=== PATIENT | female | born 1990 | race Caucasian/White ===

== ENCOUNTER 2018-09-15 01:17 | Emergency (ER) | payer SELFPAY, MEDICAID ==
[2018-09-15 01:46] LABS: URINE BLOOD (Dip) POC 1+ (NEGATIVE); URINE GLUCOSE (Dip) POC Negative (NEGATIVE); URINE KETONES (Dip) POC Negative (NEGATIVE); URINE LEUKOCYTE EST (Dip) POC Negative (NEGATIVE); URINE NITRITE (Dip) POC Negative (NEGATIVE); URINE TOTAL PROTEIN POC Negative (NEGATIVE)
[2018-09-15 01:46] LABS: URINE PH (Dip) POC 6.5 (5.0-8.5)
[2018-09-15 03:27] LABS: ADD MAN DIFF? NO
[2018-09-15 04:17] LABS: BASOPHIL # 0.1 10^3/ul (0.0-0.1); BASOPHILS % 1.1 % (0.0-2.0); EOSINOPHILS # 0.5 10^3/ul (0.0-0.5); EOSINOPHILS % 7.7 % (0.0-7.0); HEMOGLOBIN 13.3 g/dl (12.0-16.0); LYMPHOCYTES # 1.9 10^3/ul (0.8-2.9); LYMPHOCYTES % 29.8 % (15.0-51.0); MEAN CORPUSCULAR HEMOGLOBIN 30.5 pg (29.0-33.0); MEAN CORPUSCULAR HGB CONC 34.1 g/dl (32.0-37.0); MEAN CORPUSCULAR VOLUME 89.4 fl (82.0-101.0); MEAN PLATELET VOLUME 10.9 fl (7.4-10.4); MONOCYTE # 0.7 10^3/ul (0.3-0.9); MONOCYTES % 11.1 % (0.0-11.0); NEUTROPHIL # 3.2 10^3/ul (1.6-7.5); PLATELET COUNT 288 10^3/UL (140-415); RED BLOOD COUNT 4.36 10^6/ul (4.20-5.40)
[2018-09-15 04:17] LABS: WHITE BLOOD COUNT 6.4 10^3/ul (4.8-10.8)
[2018-09-15 04:25] LABS: ANION GAP 10 (5-13); CARBON DIOXIDE 22 mmol/L (21-31); CHLORIDE 108 mmol/L (97-110); GLUCOSE 104 mg/dl (70-220); POTASSIUM 4.2 mmol/L (3.5-5.1); SODIUM 140 mmol/L (135-144)
[2018-09-15 04:26] LABS: CALCIUM 9.1 mg/dl (8.4-10.2); TROPONIN-I < 0.012 ng/ml (0.000-0.120)
[2018-09-15 04:27] LABS: BLOOD UREA NITROGEN 14 mg/dl (7-20); CREATININE 0.66 mg/dl (0.44-1.00); Estimated GFR > 60 mL/min (>60)
[2018-09-15] MEDS: LORAZEPAM 1 MG TAB PO (04:36)
== END 2018-09-15 05:17 | disposition home or self-care (01) ==
LOC: FTE 01:17
DX: R07.89 Other chest pain (principal); F41.1 Generalized anxiety disorder
CPT/HCPCS: 71045; 80048; 81003; 81025; 84484; 85025; 93005; 99285-25